=== PATIENT | male | born 2000 | race Caucasian/White ===

== ENCOUNTER 2019-12-30 21:57 | Inpatient (IN) | payer BC, SELFPAY ==
[2019-12-30 22:06] VITALS: BP 145/93; PULSE 84; RESP 18; TEMP 37.2; O2SAT 98; BMI 35.2
--- NOTE | 2019-12-30 22:15 | XR_ITS ---
PROCEDURE: XR CHEST 2V CLINICAL HISTORY: chest pain COMPARISON: No exams were available for comparison FINDINGS: The cardiomediastinal silhouette and pulmonary vascularity are within normal limits. The lungs are clear without infiltrates, suspicious nodules, or pleural effusions. No acute bony abnormalities. IMPRESSION: No acute findings. Dictated by: Zachery Zepeda MD 12/31/2019 05:45 Electronically signed by Zachery Zepeda MD in [place] 12/31/2019 05:45
--- NOTE | 2019-12-30 22:20 | ECG_ITS ---
APPROVED REPORT Exam: Resting ECG HR:135 bpm ECG Measurements Heart Rate 135 AXES QRSd 88 QRS 48 QT 274 T 35 QTc 411 <Conclusion> Atrial fibrillation with rapid ventricular response with premature ventricular or aberrantly conducted complexes Abnormal ECG Electronically signed by : Julián Tubbs, 01/01/2020 14:00:08
[2019-12-30 22:31] LABS: Basophils # 0.1 K/mm3 (0-0.2); Basophils % 1.4 % (0.1-2.0); Eosinophils # 0.1 K/mm3 (0.0-0.4); Eosinophils % 1.7 % (0.1-12.0); Hematocrit 44.8 % (42.0-52.0); Lymphocytes # 2.5 K/mm3 (0.7-4.5); Mean Corpuscular HGB Conc 35.7 g/dL (31.8-35.4); Mean Corpuscular Hemoglobin 33.3 pg (27.0-31.2); Mean Corpuscular Volume 93.2 fl (80-94); Mean Platelet Volume 8.2 fl (7.4-10.4); Monocytes # 0.4 K/mm3 (0.1-1.0); Monocytes % 5.5 % (1.7-9.3); Neutrophils # 4.3 K/mm3 (1.8-7.8); Neutrophils % 57.4 % (37.0-80.0); Platelet Count 257 K/mm3 (142-424); Red Cell Distribution Width 13.1 % (11.5-17.5); White Blood Count 7.5 K/mm3 (4.8-10.8)
[2019-12-30 22:36] LABS: Chloride 106 mmol/L (98-107)
[2019-12-30 22:37] LABS: Potassium 3.7 mmoL/L (3.5-5.1); Sodium 140 mmol/L (136-145)
[2019-12-30 22:39] LABS: Blood Urea Nitrogen 15 mg/dl (9-20); Creatinine Clearance Estimated 244 mL/min (50-200); Estimated Glomerular Filt Rate 122 ml/min (>60); GFR (African American) 148 ML/MIN (>60)
[2019-12-30 22:40] LABS: Anion Gap 11.7 mEq/L (5-15); Calcium 9.5 mg/dl (8.4-10.2); Carbon Dioxide 26 mmol/L (22.0-30.0); Glucose 113 mg/dl (74-100)
[2019-12-30 22:42] LABS: Microscopic, Urine URINE MICROSCOPIC (MICROSCOPIC)
[2019-12-30 22:56] LABS: Appearance,Urine CLEAR (Clear); Bilirubin,Urine Negative (Negative); Blood, Urine Negative (Negative); Color,Urine YELLOW (Yellow); Glucose,Urine (UA) Negative (Negative); Ketones,Urine Negative (Negative); Leukocyte Esterase,Urine Negative (Negative); Nitrate,Urine Negative (Negative); PH,Urine 6.5 (5.0-8.5); Protein,Urine Negative (Negative); Specific Gravity, Urine 1.025 (1.005-1.030)
--- NOTE | 2019-12-30 23:05 | HMH.EDCP ---
ED Disposition Clinical Impression: Obesity (BMI 30-39.9) A-fib Qualifiers: Atrial fibrillation type: unspecified Qualified Code(s): I48.91 - Unspecified atrial fibrillation Disposition: Admitted As Inpatient Condition on Discharge: Serious Referrals: Provider,Referral, [Referring] - - Critical Care Critical Care Time: No Attestation: On 12/30/19, the high probability of a clinically significant, sudden or life threatening deterioration of the following system(s) required my full and direct attention, intervention and personal management. The time I documented below is in addition to time spent performing reported procedures but includes the following listed in this critical care notation. Medical Decision Making - Medical Records Medical records reviewed: Yes: I reviewed the patient's medical records. - Raul Inquiry Pt receiving controlled substance: No Vital Signs: 12/30/19 22:06 12/30/19 23:28 12/31/19 00:06 Temperature 98.9 F Temperature Source Oral Pulse Rate [Right] 84 98 H 91 H Respiratory Rate 18 18 14 Blood Pressure [Right Arm] 145/93 H 117/54 L 118/62 Blood Pressure Mean [Right Arm] 110 75 80 Blood Pressure Source [Right Arm] Automatic Cuff Automatic Cuff Blood Pressure Position [Right Arm] Sitting Supine 02 Sat by Pulse Oximetry 98 97 97 Oxygen Delivery Method Room Air Room Air Room Air - Lab Data Lab results reviewed: Yes: I reviewed the patient's lab results. Lab Results 12/30/19 22:25: WBC 7.5, RBC 4.80, Hgb 16.0, Hct 44.8, MCV 93.2, MCH 33.3 H, MCHC 35.7 H, RDW 13.1, Plt Count 257, MPV 8.2, Neut % (Auto) 57.4, Lymph % (Auto) 34.0, [place] % (Auto) 5.5, Eos % (Auto) 1.7, Baso % (Auto) 1.4, Neut # (Auto) 4.3, Lymph # (Auto) 2.5, [place] # (Auto) 0.4, Eos # (Auto) 0.1, Baso # (Auto) 0.1 12/30/19 22:25: Sodium 140, Potassium 3.7, Chloride 106, Carbon Dioxide 26, Anion Gap 11.7, BUN 15, Creatinine 0.80, Estimated Creat Clear 244, Estimated GFR 122, Est GFR ( Amer) 148, Glucose 113 H, Calcium 9.5, Troponin I < 0.01, TSH 2.17, Thyroxine (T4) 11.0 12/30/19 22:25: Urine Color Yellow, Urine Appearance Clear, Urine pH 6.5, Ur Specific [place] 1.025, Urine Protein Negative, Urine Glucose (UA) Negative, Urine Ketones Negative, Urine Blood Negative, Urine Nitrate Negative, Urine Bilirubin Negative, Urine Urobilinogen 1.0, Ur Leukocyte Esterase Negative, Urine WBC Occasional, Ur Squamous Epith Cells Occasional, Urine Bacteria Trace 12/30/19 22:25: Urine Opiates Screen Negative, Urine Methadone Screen Negative, Ur Barbituates Screen Negative, Ur Phencyclidine Scrn Negative, Ur Amphetamines Screen Negative, U Benzodiazepines Scrn Negative, Urine Cocaine Screen Negative, U Marijuana (THC) Screen Negative Result diagrams: 12/30/19 22:25 12/30/19 22:25 Orders (Tests/Meds): ED MEDICATIONS Generic Name Dose Route Start Last Admin Trade Name Freq PRN Reason Stop Dose Admin Sodium Chloride 1,000 mls @ 999 mls/hr 12/30/19 22:15 12/30/19 22:24 Sod Chlor 0.9% 1000ml Bag IV 12/30/19 23:15 999 mls/hr .Q1H1M DILIP Administration Diltiazem HCl 100 mg/ Sodium 100 mls @ 5 mls/hr 12/30/19 22:30 12/30/19 22:49 Chloride IV 01/29/20 22:29 5 mls/hr .Q20H DILIP Administration Protocol Diltiazem HCl 100 mg/ Sodium 100 mls @ 5 mls/hr 12/30/19 22:46 12/30/19 22:57 Chloride IV 01/29/20 22:45 5 mls/hr .Q20H DILIP Administration Protocol Discontinued Medications Generic Name Dose Route Start Last Admin Trade Name Freq PRN Reason Stop Dose Admin Aspirin 324 mg 12/30/19 22:15 12/30/19 22:24 Aspirin 81mg Chewable Tablet PO 12/30/19 22:16 324 mg ONCE ONE Administration Diltiazem HCl 10 mg 12/30/19 22:30 12/30/19 22:49 Cardizem 25mg/5ml Vial IV 12/30/19 22:31 10 mg ONCE ONE Administration ORDERS Category Date Time Status XR chest 2V Stat Exams 12/30/19 22:15 Taken Troponin I Q3H Lab 12/31/19 01:15 Ordered Troponin I Q3H Lab 12/31/19 04
[2019-12-30 23:09] LABS: Amphetamine/Metha Screen,Urine Negative ng/ml (<1000); Benzodiazepines Screen,Urine Negative ng/ml (<200); Troponin I < 0.01 ng/ml (0.00-0.034)
[2019-12-30 23:10] LABS: Barbiturates Screen,Urine Negative ng/ml (<200)
[2019-12-30 23:11] LABS: Cannabinoid Screen,Urine Negative ng/ml (<50); Cocaine Screen,Urine Negative ng/ml (<300); Thyroid Stimulating Hormone 2.17 uIU/mL (0.465-4.68)
[2019-12-30 23:12] LABS: Methadone Screen,Urine Negative ng/ml (<300)
[2019-12-30 23:13] LABS: Opiate Screen,Urine Negative ng/ml (<300); Phencyclidine Screen,Urine Negative ng/ml (<25)
[2019-12-30 23:25] LABS: Bacteria,Urine Trace /lpf; Squamous Epithelial Cell,Urine Occasional #/hpf (0-5); WBC,Urine Occasional #/hpf (0-3)
[2019-12-30 23:28] VITALS: BP 117/54; PULSE 98; RESP 18; O2SAT 97
--- NOTE | 2019-12-30 23:29 | PC.NURSE ---
Pt has a normal rate, but continues to be in A-fib, pt BP dropped from SBP 145 to SBP 117, did not increase Cardizem gtt
[2019-12-31] VITALS (35 sets, daily range): BP systolic 101–144; BP diastolic 50–90; PULSE 60–112; RESP 14–20; TEMP 36.8–37.2; O2SAT 94–100; BMI 36.7
--- NOTE | 2019-12-31 | CA_ITS ---
APPROVED REPORT EXAM: Comprehensive 2D, Doppler, and color-flow Echocardiogram Exercise Rider: Fanny Cheek RDCS Ht: 6 ft 0 in Wt: 260lbs BSA: 2.38 Indications: bicuspid av AF Procedure After obtaining informed consent, patient underwent transesophageal echo in the [facility]. Sedation was administered by Koby Walker C.R.N.A. Transesophageal probe was inserted and advanced into esophagus without difficulty by Dr. Ruben Cartagena. The JESSE was performed without complications. Synchronized Cardioversion attempted: Successful Synchronized Cardioversion acheived with 150 Joules after 1 attempt(s). Rhythm following Synchronized Cardioversion: Normal Sinus Rhythm Throughout the procedure, the blood pressure, pulse oximetry, cardiac rhythm, and rate were monitored. The patient tolerated the procedure without adverse effects. Recovery from conscious sedation was uneventful and vital signs were stable. Left Ventricle Left ventricle is normal size preserved left ventricular systolic function, visually estimated ejection fraction 55% with no regional wall motion abnormality. Right Ventricle Right ventricle is mildly enlarged with normal contractility. Atria Left atrium is mildly enlarged. Left atrial appendage is free of thrombus, there is good appendage flow by spectral Doppler. Right atrium is mildly enlarged. Interatrial septum is intact, there is no flow across the interatrial septum, agitated saline contrast study fails to identify intracardiac shunt. Aortic Valve Aortic valve is bicuspid, there is no aortic stenosis, there is moderate to severe aortic insufficiency Mitral Valve Mitral valve is normal, there is no mitral stenosis, there is trace mitral regurgitation. Tricuspid Valve Tricuspid valve is grossly normal, there is mild tricuspid regurgitation. Pulmonic Valve Pulmonic valve is grossly normal Great Vessels Aortic root is enlarged measuring 4.2 cm Ascending aorta is mildly dilated. Pericardium No significant pericardial effusion noted. Conclusion 1. Mild biatrial enlargement, no thrombus seen in left atrium or left atrial appendage, there is good appendage flow by spectral Doppler. 2. Normal left ventricular size preserved left ventricular systolic function 3. Bicuspid aortic valve without aortic stenosis, there is moderate to severe aortic insufficiency, aortic root is enlarged measuring 4.2 cm. 4. Mildly enlarged right atrium and right ventricle, contractility of the right ventricle is normal. 5. No significant pericardial effusion noted. Electronically signed by : Holden Goldstein, 12/31/2019 15:17:20
--- NOTE | 2019-12-31 01:25 | PC.NURSE ---
Pt continues to be in A-fib with a controlled rate
[2019-12-31 01:43] LABS: Troponin I < 0.01 ng/ml (0.00-0.034)
--- NOTE | 2019-12-31 04:23 | PC.NURSE ---
A&OX4. PT HAS TOLERATED ROOM AIR WELL THROUGHOUT SHIFT. LUNG SOUNDS BILATERALLY CLEAR. RESPIRATIONS CLEAR AND UNLABORED. NO COUGH NOTED. HEART RATE REGULAR. ATRIAL FIBRILLATION WITH PVCS NOTED ON TELEMETRY WITH A CONTROLLED RATE. ACTIVE BOWEL SOUNDS HEARD IN ALL 4 QUADRANTS. SOFT AND NONTENDER. PUPILS BRISK AND REACTIVE TO LIGHT. +2 PULSES NOTED THROUGHOUT. HAND COOK HELPER VEGETABLE EQUAL. CARDIZEM DRIP INFUSING AT 5MG/HR. NS INFUSING AT 50ML/HR. PT TOLERATING WELL. PT RECEIVED BED BATH AND WAS CLIPPED BY UPHOLSTERY MECHANIC IN PREPARATION FOR CARDIAC CONSULTATION. BED IN LOWEST POSITION. CALL LIGHT WITHIN REACH. VSS. NO CONCERNS AT THIS TIME. WILL CONTINUE TO MONITOR.
[2019-12-31 05:18] LABS: Basophils % 0.6 % (0.1-2.0); Eosinophils # 0.1 K/mm3 (0.0-0.4); Eosinophils % 1.8 % (0.1-12.0); Hematocrit 43.5 % (42.0-52.0); Hemoglobin 15.4 g/dL (14.1-18.0); Lymphocytes # 2.6 K/mm3 (0.7-4.5); Lymphocytes % 40.4 % (10-50); Mean Corpuscular HGB Conc 35.4 g/dL (31.8-35.4); Mean Corpuscular Hemoglobin 33.2 pg (27.0-31.2); Mean Corpuscular Volume 93.9 fl (80-94); Mean Platelet Volume 8.1 fl (7.4-10.4); Monocytes # 0.5 K/mm3 (0.1-1.0); Monocytes % 7.8 % (1.7-9.3); Neutrophils # 3.1 K/mm3 (1.8-7.8); Neutrophils % 49.5 % (37.0-80.0); Platelet Count 223 K/mm3 (142-424); Red Blood Count 4.63 M/mm3 (4.60-6.20); Red Cell Distribution Width 13.3 % (11.5-17.5); White Blood Count 6.3 K/mm3 (4.8-10.8)
[2019-12-31 05:49] LABS: Troponin I < 0.01 ng/ml (0.00-0.034)
[2019-12-31 05:58] LABS: Blood Urea Nitrogen 19 mg/dl (9-20); Calcium 9.6 mg/dl (8.4-10.2); Carbon Dioxide 23 mmol/L (22.0-30.0); Chloride 108 mmol/L (98-107); Cholesterol 151 mg/dl (140-200); Creatinine Clearance Estimated 254 mL/min (50-200); Estimated Glomerular Filt Rate 122 ml/min (>60); GFR (African American) 148 ML/MIN (>60); Glucose 96 mg/dl (74-100); HDL Cholesterol 50 mg/dl (40-60); Magnesium 1.9 mg/dl (1.6-2.3); Sodium 137 mmol/L (136-145); Triglycerides 121 mg/dl (30-150); VLDL Cholesterol 24 mg/dL (0-40)
--- NOTE | 2019-12-31 08:00 | CA_ITS ---
APPROVED REPORT EXAM: Comprehensive 2D, Doppler, and color-flow Echocardiogram Tail Puller: Becky Akbar RT(R) Ht: 6 ft 0 in Wt: 260lbs BSA: 2.38 BP: 117/54 mmHg Indications: AF CP SOA 2D Dimensions LVOT 2.81 cm (M/F) 1.5-2.5 M-Mode Dimensions RVDd 1.97 cm (0.9-2.6) LVDd 4.77 cm (3.5-5.7) LVDs 3.41 cm (3.5-5.7) IVSd 1.64 cm (0.6-1.1) PWd 0.96 cm (0.6-1.1) EF (Teich) 54.90% FS 28.50% EDV (Teich) 106.00 mL ESV (Teich) 47.80 mL LV Diastology E/A Ratio 2.56 Aortic Valve LVOT Max 106.00 (70-110 cm/s) LVOT VTI 23.36 cm Mitral Valve MV A Velocity 32.00 (40-130 cm/s) Left Ventricle Left atrium is mildly enlarged, left ventricle is normal size, preserved left ventricular systolic function, visually estimated ejection fraction 55% with no regional wall motion abnormality. Diastolic parameters are inconclusive. Right Ventricle Right atrium and right ventricle are mildly enlarged with normal contractility. Aortic Valve Aortic valve is bicuspid. There is no aortic stenosis, there is moderate aortic insufficiency. Mitral Valve Mitral valve grossly normal, there is trace mitral regurgitation. Tricuspid Valve Tricuspid valve is grossly normal, there is mild tricuspid regurgitation, tricuspid regurgitation jet velocity is inadequate for calculation of the right ventricular systolic pressure. Pulmonic Valve Pulmonic valve is poorly visualized. Great Vessels Aortic root is enlarged measuring 4.2 cm Pericardium No significant pericardial effusion noted Conclusion 1. Mild biatrial abdomen, normal left ventricular size, visually estimated ejection fraction 55% with no regional wall motion abnormality. Diastolic parameters are inconclusive. 2. Bicuspid aortic valve without aortic stenosis, there is moderate aortic insufficiency, aortic root is enlarged measuring 4.2 cm. 3. Trace mitral and mild tricuspid regurgitation. 4. No significant pericardial effusion noted. Electronically signed by : Holden Goldstein, 12/31/2019 15:21:02
--- NOTE | 2019-12-31 08:06 | HMH.PHAVTE ---
[facility] VTE Monitoring - Patient Demographics Admission date: 12/31/19 Report Date: 12/31/19 Time: 08:06 Allergies/Adverse Reactions: Patient Allergies No Known Allergies Allergy (Verified 12/31/19 00:58) Height: 1.83 m Weight: 123.122 kg Patient Problems: Current Active Problems A-fib (Acute) Obesity (BMI 30-39.9) (Acute) - VTE Risk Labs: VTE Related Lab Results Hgb 15.4 g/dL (14.1-18.0) 12/31/19 04:40 Hct 43.5 % (42.0-52.0) 12/31/19 04:40 Plt Count 223 K/mm3 (142-424) 12/31/19 04:40 BUN 19 mg/dl (9-20) D 12/31/19 04:40 Creatinine 0.80 mg/dl (0.66-1.25) 12/31/19 04:40 Estimated Creat Clear 254 mL/min (50-200) 12/31/19 04:40 Was VTE Risk Assessment Performed: Yes VTE Score: 1 VTE Risk Level: Very Low Risk Clinical Trial Participant: No - Prophylaxis VTE Prophylaxis Ordered?: Yes Types of VTE Prophylaxis: TEDS Knee High
--- NOTE | 2019-12-31 08:49 | HMH.CNCARD ---
History of Present Illness Consult date: 12/31/19 Requesting physician: Farheen Pollock Consult reason: atrial fibrillation Chief complaint: Palpitations, SOA, chest discomfort Additional Medical History:: 1. History of eczema 2. Alcohol use 3. History of VAPE use 4. A. flutter with RVR, 12/2019 5. Bicuspid Aortic valve, echo, 12/2019 History of present illness: 19-year-old male presented to the emergency department for complaints of palpitations, shortness of breath and chest discomfort starting on 12/29/2019. Occasional dizziness after bending over and standing up. He denies any passing out spells. Chest discomfort was located centrally without radiation. Shortness of breath was associated with palpitations and exertion. Patient has had a history of intermittent episodes of palpitations (lasting only a few seconds to minutes at a time) in the past but no history of diagnosed arrhythmias. Interestingly his older brother has a history of SVT with ablation procedure. Home monitor recorded heart rates in the 160 bpm range with EKG here showing atrial flutter with rate of 135 bpm with burst of to 160 to 170 bpm. Troponins overnight have returned normal x3. Patient is on a diltiazem drip with rate controlled currently. 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 He denies any illicit drug use. [facility] History Medical History: Denies:: Cancer, Diabetes Mellitus Type 1, Diabetes Mellitus Type 2, MRSA *Have you ever received a pneumonia vaccine?: No *Have you received a flu vaccine this season?: No Laterality Cases: Right: Arthroscopy Shoulder Amputation: No Fractures: Yes (R ARM TWICE, COLLAR BONE) - *Social History Educational Level: Completed High School Smoking Status: Unknown if ever smoked Tobacco Type: smokeless tobacco # Packs/Day (cigarettes): 0 Alcohol Intake: current Alcohol Intake Frequency:: a few times a month *Occupational Status:: employed Housing: house Household Members: family *Travel in the last 8 weeks: None Family Hx:: Diabetes Meds Home Medications Medication Instructions Recorded Confirmed Type No Known Home Medications 12/30/19 12/30/19 History Allergies Allergy/AdvReac Type Severity Reaction Status Date / Time No Known Allergies Allergy Verified 12/31/19 00:58 Review of Systems - Review of Systems Review of systems:: pertinent systems reviewed and negative unless documented below - *Cardiovascular Reports chest pain - *Respiratory Reports shortness of breath with activity, Denies cough - *Gastrointestinal Denies loose stools, Denies nausea, Denies vomiting - *Genitourinary Denies blood in urine - *Musculoskeletal Denies joint pain, Denies back pain - *Neurologic Reports dizziness, Denies seizure-like activity, Denies fainting, Denies tingling Exam Vital signs and Labs for Last 24 Hours: Temp Pulse Resp BP Pulse Ox 98.9 F 107 H 18 101/56 L 97 12/31/19 08:00 12/31/19 08:00 12/31/19 08:00 12/31/19 08:00 12/31/19 08:00 Laboratory Results - last 24 hr 12/30/19 22:25: WBC 7.5, RBC 4.80, Hgb 16.0, Hct 44.8, MCV 93.2, MCH 33.3 H, MCHC 35.7 H, RDW 13.1, Plt Count 257, MPV 8.2, Neut % (Auto) 57.4, Lymph % (Auto) 34.0, [place] % (Auto) 5.5, Eos % (Auto) 1.7, Baso % (Auto) 1.4, Neut # (Auto) 4.3, Lymph # (Auto) 2.5, [place] # (Auto) 0.4, Eos # (Auto) 0.1, Baso # (Auto) 0.1 12/30/19 22:25: Sodium 140, Potassium 3.7, Chloride 106, Carbon Dioxide 26, Anion Gap 11.7, BUN 15, Creatinine 0.80, Estimated Creat Clear 244, Estimated GFR 122, Est GFR ( Amer) 148, Glucose 113 H, Calcium 9.5, Troponin I < 0.01, TSH 2.17, Thyroxine (T4) 11.0 12/30/19 22:25: Urine Color Yellow, Urine Appearance Clear, Urine pH 6.5, Ur Specific [place] 1.025, Urine Protein Negative, Urine Glucose (UA) Negative, Urine Ketones Negative, Urine Blood Negative, Urine Nitrate Negative, Urine Bilirub
--- NOTE | 2019-12-31 09:05 | HMH.HP ---
*Admission Date: 12/31/19 *Chief complaint: palpitations *History of present illness: 19-year-old male presented to the emergency department for complaints of palpitations, shortness of breath and chest discomfort starting on 12/29/2019. Occasional dizziness after bending over and standing up. He denies any passing out spells. Chest discomfort was located centrally without radiation. Shortness of breath was associated with palpitations and exertion. Patient has had a history of intermittent episodes of palpitations (lasting only a few seconds to minutes at a time) in the past but no history of diagnosed arrhythmias. Interestingly his older brother has a history of SVT with ablation procedure. Home monitor recorded heart rates in the 160 bpm range with EKG here showing atrial fibrillation with rate of 135 bpm with burst of to 160 to 170 bpm. Troponins overnight have returned normal x3. Patient is on a diltiazem drip with rate controlled currently. 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 He denies any illicit drug use. (the above as per Stephan León) [facility] History I have reviewed the patient's past medical history: Yes Medical History: Denies:: Cancer, Diabetes Mellitus Type 1, Diabetes Mellitus Type 2, MRSA *Have you ever received a pneumonia vaccine?: No *Have you received a flu vaccine this season?: No Laterality Cases: Right: Arthroscopy Shoulder Amputation: No Fractures: Yes (R ARM TWICE, COLLAR BONE) - *Social History Educational Level: Completed High School Smoking Status: Unknown if ever smoked Tobacco Type: smokeless tobacco # Packs/Day (cigarettes): 0 Alcohol Intake: current Alcohol Intake Frequency:: a few times a month *Occupational Status:: employed Housing: house Household Members: family *Travel in the last 8 weeks: None Family Hx:: Diabetes, Heart Attack, Hyperlipidemia, Hypertension Review of Systems - Constitutional Denies chills, Denies fever(s), Denies weakness - Eyes Denies blurry vision, Denies double vision - ENT Denies nasal congestion, Denies sore throat - *Cardiovascular Reports chest pain, Reports rapid, pounding, or irregular heartbeat, Denies shortness of breath - *Respiratory Denies cough, Denies shortness of breath - *Gastrointestinal Denies abdominal pain, Denies loose stools, Denies nausea, Denies vomiting - *Genitourinary Denies difficulty urinating, Denies painful urination - *Musculoskeletal Denies joint pain - *Neurologic Reports dizziness, Denies seizure-like activity, Denies fainting, Denies tingling, Denies weakness Meds Home Medications Medication Instructions Recorded Confirmed Type No Known Home Medications 12/30/19 12/30/19 History Allergies Allergy/AdvReac Type Severity Reaction Status Date / Time No Known Allergies Allergy Verified 12/31/19 00:58 Exam Vital signs and Labs for Last 24 Hours: Temp Pulse Resp BP Pulse Ox 98.9 F 107 H 18 101/56 L 97 12/31/19 08:00 12/31/19 08:00 12/31/19 08:00 12/31/19 08:00 12/31/19 08:00 Laboratory Results - last 24 hr 12/30/19 22:25: WBC 7.5, RBC 4.80, Hgb 16.0, Hct 44.8, MCV 93.2, MCH 33.3 H, MCHC 35.7 H, RDW 13.1, Plt Count 257, MPV 8.2, Neut % (Auto) 57.4, Lymph % (Auto) 34.0, [place] % (Auto) 5.5, Eos % (Auto) 1.7, Baso % (Auto) 1.4, Neut # (Auto) 4.3, Lymph # (Auto) 2.5, [place] # (Auto) 0.4, Eos # (Auto) 0.1, Baso # (Auto) 0.1 12/30/19 22:25: Sodium 140, Potassium 3.7, Chloride 106, Carbon Dioxide 26, Anion Gap 11.7, BUN 15, Creatinine 0.80, Estimated Creat Clear 244, Estimated GFR 122, Est GFR ( Amer) 148, Glucose 113 H, Calcium 9.5, Troponin I < 0.01, TSH 2.17, Thyroxine (T4) 11.0 12/30/19 22:25: Urine Color Yellow, Urine Appearance Clear, Urine pH 6.5, Ur Specific [place] 1.025, Urine Protein Negative, Urine Glucose (UA) Negative, Urine Ketones Negative, Urine Blood Negative, Urine Nitrate Ne
--- NOTE | 2019-12-31 14:38 | ECG_ITS ---
APPROVED REPORT Exam: Resting ECG HR:65 bpm ECG Measurements Heart Rate [address] 192 P 10 QRSd 84 QRS 10 QT 396 T 11 QTc 411 <Conclusion> Normal sinus rhythm Normal ECG Electronically signed by : Sulaiman Nichols, 01/03/2020 07:16:00
--- NOTE | 2019-12-31 14:39 | P.PN_ITS ---
[facility] Anesthesia Checklist - Patient Identification Patient Identification: Arm Band, Verbal (Name & ) - Structural Data Admitted From: Inpatient Planned Operative Procedure/s: JESSE/cardioversion Consent for Planned Operative Procedure(s) Verified: Yes Verified Documents: Surgical Consent, History and Physical - NPO Status Verified Time NPO: 00:00 - Chart Verification Results Verified: CBC, BMP, ECG, UA, Chest Xray - Additional verifications Anesthesia Reactions: No - Airway Assessment C-Spine Mobility Assessed: Yes TMJ Mobility Assessed: Yes Dentition: Good Dentition - Neurological Assessment Level of Consciousness: Awake, Appropriate, Follows Commands, Drowsy (pt states he is extremely tired) Hx Seizures: No Numbness or tingling in extremities: No - Anesthesia Plan Anesthesia Risk discussed: Yes Anesthesia Plan: Verified ASA Class: III Anesthesia Type: MAC [facility] History I have reviewed the patient's past medical history: Yes Medical History: Reports:: Atrial Fibrillation Denies:: Cancer, Diabetes Mellitus Type 1, Diabetes Mellitus Type 2, MRSA *Have you ever received a pneumonia vaccine?: No *Have you received a flu vaccine this season?: No Comment:: obesity, SOB, palpitations, chest pain Anesthesia experience/problems:: none Laterality Cases: Right: Arthroscopy Shoulder Amputation: No Fractures: Yes (R ARM TWICE, COLLAR BONE) - *Social History Educational Level: Completed High School Smoking Status: Unknown if ever smoked Tobacco Type: smokeless tobacco # Packs/Day (cigarettes): 0 Alcohol Intake: current Alcohol Intake Frequency:: a few times a month Substance Use Type: denies use *Occupational Status:: employed Housing: house Household Members: family *Travel in the last 8 weeks: None Family Hx:: Diabetes, Heart Attack, Hyperlipidemia, Hypertension
[2020-01-01] VITALS: BP 114/71; PULSE 70; PULSE 71; O2SAT 98
--- NOTE | 2020-01-01 00:25 | PC.NURSE ---
He is A&Ox4. Denies pain, shortness of air, dizziness, weakness, and palpitations. Reports that he feels fine. He has been awake watching television and on his phone. Continues in NSR.
--- NOTE | 2020-01-01 00:59 | PC.NURSE ---
Report given to Lisette Regalado RN.
[2020-01-01 02:00] VITALS: BP 103/60; PULSE 68; RESP 20; O2SAT 98
[2020-01-01 04:00] VITALS: BP 108/63; PULSE 61; PULSE 64; RESP 16; TEMP 36.9; O2SAT 96; BMI 36.6
--- NOTE | 2020-01-01 06:06 | PC.NURSE ---
patient has rested throughout shift, no complaints voiced.
--- NOTE | 2020-01-01 07:59 | HMH.PNCARD ---
Subjective Date: 01/01/20 Time: 07:59 Principal diagnosis: Atrial fib/flutter with RVR Interval history: 19-year-old white male in bed in no acute distress. Patient remains in sinus rhythm overnight by telemetry. He denies any chest pain, pressure or tightness. Exam Vital signs and Labs for Last 24 Hours: Temp Pulse Resp BP Pulse Ox 98.4 F 61 16 108/63 L 96 01/01/20 04:00 01/01/20 04:00 01/01/20 04:00 01/01/20 04:00 01/01/20 04:00 I & O for Last 24 hours: Intake & Output 12/29/19 12/30/19 12/31/19 01/01/20 11:59 11:59 11:59 11:59 Intake Total 1087 / 1087 524 / 524 Balance 1087 / 1087 524 / 524 Weight 271 lb 7.001 oz 270 lb 8 oz - *Routine HEENT Exam Head: Present: normocephalic Eye: Present: EOMI, PERRL ENT: Present: mucous membranes moist - *Routine Respiratory Exam Present: CTA bilaterally. Absent: accessory muscle use, rales, rhonchi, wheezes - *Routine Cardiovascular Exam Present: RRR. Absent: murmur, gallop, rubs - *Routine Neurological Exam Present: alert, oriented X3, moving all extremities Progress Note: A&P (1) Atrial flutter with rapid ventricular response Status: Acute Current Visit: Yes (2) ETOH abuse Status: Acute Current Visit: Yes (3) Obesity (BMI 30-39.9) Status: Acute Current Visit: Yes (4) Bicuspid aortic valve determined by imaging Status: Acute Current Visit: Yes (5) Smokeless tobacco use Status: Acute Current Visit: Yes Assessment and Plan for All Diagnoses:: Clinically stable overnight on metoprolol succinate Exar 25 mg daily and Eliquis 5 mg twice daily. Patient can be discharged home from cardiology standpoint with follow-up in 1 week. Patient does have bicuspid aortic valve and aortic root enlargement which will need to be followed every 6 months with echocardiogram. If blood pressure allows in the future, would recommend adding Cozaar 25 mg daily but will discuss this at follow-up in 1 week.
[2020-01-01 08:00] VITALS: PULSE 60
[2020-01-01 08:09] VITALS: BP 118/65; PULSE 60; RESP 15; O2SAT 97
--- NOTE | 2020-01-01 08:24 | HMH.ACPN2 ---
Internal Medicine - PN: Subj *Date: 01/01/20 *Time: 08:24 Interval history: Patient has remained in sinus rhythm overnight and feels well this morning. He denies any chest pain or heart palpitations. He slept well and is eating well and is anxious to go home. Exam Vital signs and Labs for Last 24 Hours: Temp Pulse Resp BP Pulse Ox 98.4 F 60 15 118/65 97 01/01/20 04:00 01/01/20 08:09 01/01/20 08:09 01/01/20 08:09 01/01/20 08:09 I & O for Last 24 hours: Intake & Output 12/29/19 12/30/19 12/31/19 01/01/20 11:59 11:59 11:59 11:59 Intake Total 1087 / 1087 524 / 524 Balance 1087 / 1087 524 / 524 Weight 271 lb 7.001 oz 270 lb 8 oz - Constitutional no acute distress - *Routine Respiratory Exam Present: CTA bilaterally - *Routine Cardiovascular Exam Present: RRR - *Routine Abdominal Exam Present: soft, normoactive bowel sounds. Absent: tenderness - *Routine Extremities Exam Absent: cyanosis, clubbing, edema - *Routine Skin Exam Present: warm. Absent: rash - *Routine Neurological Exam Present: alert, oriented X3 Assessment and Plan (1) Atrial flutter with rapid ventricular response Current visit: Yes Status: Acute Category: Medical Code(s): I48.92 - Unspecified atrial flutter (2) ETOH abuse Current visit: Yes Status: Acute Category: Social Hx Code(s): F10.10 - Alcohol abuse, uncomplicated (3) Obesity (BMI 30-39.9) Current visit: Yes Status: Acute Category: Medical Code(s): E66.9 - Obesity, unspecified (4) Bicuspid aortic valve determined by imaging Current visit: Yes Status: Acute Category: Medical Code(s): Q23.1 - Congenital insufficiency of aortic valve (5) Smokeless tobacco use Current visit: Yes Status: Acute Category: Social Hx Code(s): Z72.0 - Tobacco use - Assessment and plan all Dx Assessment and Plan for all problems:: Cardiology feels he has been stable on metoprolol succinate 25 mg daily along with Eliquis 5 mg twice daily. They feel he can be discharged home and will need to follow-up with them in 1 week.
[2020-01-01 08:27] VITALS: TEMP 36.5
--- NOTE | 2020-01-04 22:44 | HMH.DCSUM ---
General - General Admission date:: 12/31/19 Discharge date: 01/01/20 HPI HPI: 19-year-old male presented to the emergency department for complaints of palpitations, shortness of breath and chest discomfort starting on 12/29/2019. Occasional dizziness after bending over and standing up. He denies any passing out spells. Chest discomfort was located centrally without radiation. Shortness of breath was associated with palpitations and exertion. Patient has had a history of intermittent episodes of palpitations (lasting only a few seconds to minutes at a time) in the past but no history of diagnosed arrhythmias. Interestingly his older brother has a history of SVT with ablation procedure. Home monitor recorded heart rates in the 160 bpm range with EKG here showing atrial fibrillation with rate of 135 bpm with burst of to 160 to 170 bpm. Troponins overnight have returned normal x3. Patient is on a diltiazem drip with rate controlled currently. 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 He denies any illicit drug use. (the above as per [facility]) Hospital Course Hospital Course: Patient was seen in consultation by cardiology. His chest x-ray showed nothing acute and his preliminary echo showed an EF of 50% with a bicuspid aortic valve. Cardiology added Lovenox therapy and wanted to proceed with a JESSE cardioversion for further evaluation of his bicuspid aortic valve and hopefully conversion of atrial fib to sinus rhythm. They discontinued his diltiazem drip and started him on Lopressor. The patient had a JESSE and cardioversion. The JESSE revealed no thrombus and normal left ventricular size and a preserved left ventricular systolic function. There was a bicuspid aortic valve without aortic stenosis but moderate to severe aortic insufficiency. The patient was successfully cardioverted into normal sinus rhythm. He remained in sinus rhythm overnight and his chest pressure and chest tightness resolved. He was stable to be discharged home on metoprolol succinate 25 mg daily as well as Eliquis 5 mg twice daily. Cardiology wanted to follow with him in 1 week. Objective Vital signs: Temp Pulse Resp BP Pulse Ox 97.7 F 60 15 118/65 97 01/01/20 08:27 01/01/20 08:09 01/01/20 08:09 01/01/20 08:09 01/01/20 08:09 Narrative: - Constitutional no acute distress - *Routine HEENT Exam Head: Present: normocephalic Eye: Present: EOMI, PERRL ENT: Present: mucous membranes dry - *Routine Neck Exam Present: supple. Absent: carotid bruit, lymphadenopathy - *Routine Respiratory Exam Present: CTA bilaterally - *Routine Cardiovascular Exam Present: irregularly irregular - *Routine Abdominal Exam Present: soft, normoactive bowel sounds. Absent: tenderness - *Routine Extremities Exam Absent: cyanosis, clubbing, edema - *Routine Skin Exam Present: warm. Absent: rash - *Routine Neurological Exam Present: alert, oriented X3 DS: Diagnosis - Discharge Diagnosis (1) Atrial flutter with rapid ventricular response Status: Acute (2) ETOH abuse Status: Acute (3) Obesity (BMI 30-39.9) Status: Acute (4) Bicuspid aortic valve determined by imaging Status: Acute (5) Smokeless tobacco use Status: Acute Discharge Plan - Patient Discharge Instructions ACTIVITY: Continue current activity DIET: advance to your usual diet Patient Instructions: Atrial Fibrillation, DI for Atrial Fibrillation, DI for Obesity -- Adult - Follow up Plan Follow up with: Holden Goldstein MD [Staff Physician] - 01/08/20 12:00 pm Farheen Pollock MD [Primary Care Provider] - 01/13/20 10:15 am Disposition: Home, Self-Alf Medications: Home Medications Medication Instructions Recorded Confirmed Type No Known Home Medications 12/30/19 12/31/19 History Apixaban [Eliquis 5mg Tablet] 5 mg PO BID #60 tab 05
== END 2020-01-01 10:22 | disposition home or self-care (01) | DRG 309 ==
LOC: ER 22:03 → 2ND 12-31 00:31
PROVIDERS: Internal Medicine Cardiovascular Disease; Admitting Provider Family Medicine; Emergency Provider Emergency Medicine; PCP Family Medicine; Visit Provider Family Medicine
DX: I48.91 Unspecified atrial fibrillation (principal); Q23.1 Congenital insufficiency of aortic valve; Z72.0 Tobacco use; F10.10 Alcohol abuse, uncomplicated
CPT/HCPCS: 36415; 71046; 80048; 80061; 80305; 81001; 83735; 84436; 84443; 84484; 85025; 92960; 93005; 93306; 93312; 96365; 96366; 96367; 96375; 99284

== ENCOUNTER → 2020-01-28 18:33 | Outpatient (CLI) | payer BC, SELFPAY | PROVIDERS: PCP Nurse Practitioner Family; Visit Provider Physician Assistant | DX: G47.30 Sleep apnea, unspecified (principal); E66.9 Obesity, unspecified | CPT/HCPCS: G0399 ==

== ENCOUNTER 2020-09-18 13:21 | Emergency (ER) | payer BC, SELFPAY ==
[2020-09-18 13:36] VITALS: BP 143/92; PULSE 124; RESP 20; TEMP 39.6; O2SAT 98; BMI 37.3
--- NOTE | 2020-09-18 13:46 | HMH.EDUTC ---
[facility] [place] Disposition Clinical Impression: Viral syndrome, Bronchitis Disposition: Home, Self-Care Condition on Discharge: Good Instructions: DI for Viral Syndrome, DI for COVID-19 (Suspected or Confirmed ), Preventing the Spread of Coronavirus Discharge Instructions Additional Instructions: Drink plenty of fluids. Take tylenol for pain or fever. Return if you begin to have difficulty breathing. Follow up with your regular doctor. GO TO THE ER FOR ANY WORSENING SYMPTOMS Follow the [place] directions for covid-19 until you know for sure if you have it or not. Prescriptions: Ondansetron [Zofran 4mg ODT] 4 mg PO Q8HP PRN #12 tab.rapdis PRN Reason: Nausea Transmission Status: Received by [facility] Benzonatate [Tessalon Perle 100mg Cap] 100 mg PO TIDP PRN #30 cap PRN Reason: Cough [facility] Azithromycin [Z-Fabian 250mg Tab*] 250 mg PO UD DOSE PK #6 tab Transmission Status: [facility] Referrals: PCP,No [Primary Care Provider] - Forms: Work/School Release Time of Disposition: 14:40 Medical Decision Making - Medical Records Medical records reviewed: No: I reviewed the patient's medical records. - Raul Inquiry Pt receiving controlled substance: No Vital Signs: 09/18/20 13:36 09/18/20 14:21 09/18/20 14:52 Temperature 103.2 F H 102.7 F H 99.9 F H Temperature Source Oral Oral Oral Pulse Rate 105 H Pulse Rate [Right] 124 H Respiratory Rate 20 16 Blood Pressure 136/78 Blood Pressure [Right Arm] 143/92 H Blood Pressure Mean [Right Arm] 109 Blood Pressure Source [Right Arm] Automatic Cuff Blood Pressure Position [Right Arm] Sitting 02 Sat by Pulse Oximetry 98 - Lab Data Lab results reviewed: Yes: I reviewed the patient's lab results. Lab Results 09/18/20 13:47: Influenza Type A Ag Negative, Influenza Type B Ag Negative 09/18/20 13:47: Strep Scn Rapid Clinic Negative Orders (Tests/Meds): ED MEDICATIONS Discontinued Medications Generic Name Dose Route Start Last Admin Trade Name Freq PRN Reason Stop Dose Admin Acetaminophen 975 mg 09/18/20 13:42 09/18/20 13:43 Acetaminophen 325mg Tab PO 09/18/20 13:43 975 mg ONCE ONE Administration Ibuprofen 400 mg 09/18/20 13:42 09/18/20 13:43 Ibuprofen 400 Mg Tablet PO 09/18/20 13:43 400 mg ONCE ONE Administration Ondansetron HCl 4 mg 09/18/20 13:45 09/18/20 13:56 Ondansetron 4mg Odt SL 09/18/20 13:46 4 mg ONCE ONE Administration ORDERS Category Date Time Status Strep Screen Confirmation Stat Micro 09/18/20 13:47 Received [facility] [place] HPI - General Stated complaint: fever, cough diarrhea, aching Time Seen by Provider: 09/18/20 13:46 Mode of Arrival: Ambulatory Source of Information: Patient Limitations: No Limitations Description of Symptoms (Recalled from Triage Doc. by RN): fever, cought and n/v HEENT Symptoms (Recalled from RN notes): No Resp Symptoms (Recalled from RN notes): Yes (cough) Skin Symptoms (Recalled from RN notes): No MS Symptoms (Recalled from RN notes): No Functional Status (Recalled from RN notes): na - History of Present Illness Provider Complaint: He states that he has been sick for the past 2 days. He has been having a dry cough, body aches, scratchy sore throat. He states that he feels bad and he has had a very poor appetite since yesterday. He denies any abdominal pain. - Related Data Previous Rx's Medication Instructions Recorded Metoprolol Succinate [Toprol XL 25 mg PO DAILY #30 tab.er.24h 01/01/20 25mg tablet] aspirin 81 mg tablet,delayed 81 mg PO DAILY #30 tab 02/19/20 release Azithromycin [Z-Fabian 250mg Tab*] 250 mg PO UD DOSE PK #6 tab 09/18/20 Benzonatate [Tessalon Perle 100mg 100 mg PO TIDP PRN #30 cap 09/18/20 Cap] Ondansetron [Zofran 4mg ODT] 4 mg PO Q8HP PRN #12 tab.rapdis 09/18/20 Allergies Allergy/AdvReac Type Severity Reaction St
[2020-09-18 14:08] LABS: UTC Strep Screen (Rapid) Negative (Negative)
[2020-09-18 14:09] LABS: UTC Influenza A Antigen Negative (Negative); UTC Influenza B Antigen Negative (Negative)
[2020-09-18 14:21] VITALS: TEMP 39.3
[2020-09-18 14:52] VITALS: BP 136/78; PULSE 105; RESP 16; TEMP 37.7
== END 2020-09-18 14:53 | disposition home or self-care (01) ==
PROVIDERS: Emergency Provider Nurse Practitioner Family
DX: Z20.822 Contact with and (suspected) exposure to COVID-19 (principal); J20.9 Acute bronchitis, unspecified; B34.9 Viral infection, unspecified; I48.91 Unspecified atrial fibrillation; Z79.899 Other long term (current) drug therapy
CPT/HCPCS: 87804; 87880; 99202; G0463; U0003

== ENCOUNTER 2021-03-29 16:02 | Emergency (ER) | payer BC, SELFPAY ==
[2021-03-29 17:54] VITALS: BP 131/89; PULSE 68; RESP 19; TEMP 36.8; O2SAT 99; BMI 34.7
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
[2021-03-29 18:46] VITALS: BP 0/0; PULSE 0; RESP 0; TEMP -17.7; TEMP 0
== END 2021-03-29 18:46 | disposition home or self-care (01) ==
PROVIDERS: Emergency Provider Nurse Practitioner
DX: L03.116 Cellulitis of left lower limb (principal); I48.20 Chronic atrial fibrillation, unspecified
CPT/HCPCS: 90471; 99202; G0463

== ENCOUNTER 2023-04-27 20:16 | Emergency (ER) | payer BC, SELFPAY ==
[2023-04-27 20:18] VITALS: BP 141/89; PULSE 80; RESP 18; TEMP 37; O2SAT 98; BMI 29.1
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
[2023-04-27 20:33] VITALS: BP 141/89; PULSE 80; RESP 18; TEMP 37; O2SAT 98
[2023-04-27 20:38] LABS: Basophils # 0.1 K/mm3 (0-0.2); Basophils % 0.7 % (0.1-2.0); Eosinophils # 0.2 K/mm3 (0.0-0.4); Eosinophils % 3.2 % (0.1-12.0); Hematocrit 47.4 % (42.0-52.0); Lymphocytes # 2.1 K/mm3 (0.7-4.5); Lymphocytes % 31.2 % (10-50); Mean Corpuscular HGB Conc 33.7 g/dL (31.8-35.4); Mean Corpuscular Hemoglobin 31.7 pg (27.0-31.2); Mean Corpuscular Volume 94.3 fl (80-94); Mean Platelet Volume 8.3 fl (7.4-10.4); Monocytes # 0.3 K/mm3 (0.1-1.0); Monocytes % 4.6 % (1.7-9.3); Neutrophils # 4.2 K/mm3 (1.8-7.8); Neutrophils % 60.3 % (37.0-80.0); Platelet Count 261 K/mm3 (142-424); Red Blood Count 5.03 M/mm3 (4.60-6.20); Red Cell Distribution Width 12.7 % (11.5-17.5); White Blood Count 6.9 K/mm3 (4.8-10.8)
[2023-04-27 20:39] LABS: Chloride 107 mmol/L (98-107); Potassium 3.9 mmoL/L (3.5-5.1); Sodium 141 mmol/L (136-145)
[2023-04-27 20:42] LABS: Alanine Aminotransferase 29 U/L (12-78); Albumin Level 4.6 g/dl (3.5-5.0); Albumin/Globulin Ratio 1.3 (1.1-1.8); Alkaline Phosphatase 59 U/L (38-126); Anion Gap 14.9 mEq/L (5-15); Aspartate Amino Transferase 43 U/L (17-59); Bilirubin,Total 0.6 mg/dl (0.2-1.3); Blood Urea Nitrogen 10 mg/dl (9-20); Calcium 9.2 mg/dl (8.4-10.2); Carbon Dioxide 23 mmol/L (22.0-30.0); Estimated Glomerular Filt Rate 92 ml/min (>60); GFR (African American) 111 ML/MIN (>60); Globulin 3.5 g/dL (1.3-3.2); Glucose 96 mg/dl (74-100); Total Protein,Serum 8.1 g/dl (6.3-8.2)
[2023-04-27 22:01] VITALS: BP 121/73; PULSE 65; RESP 18; TEMP 36.7; O2SAT 99
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
== END 2023-04-27 22:08 | disposition home or self-care (01) ==
PROVIDERS: Emergency Provider Emergency Medicine
DX: S01.112A Laceration without foreign body of left eyelid and periocular area, initial encounter (principal); M54.50 Low back pain, unspecified; Z23 Encounter for immunization; V86.95XA Unspecified occupant of 3- or 4- wheeled all-terrain vehicle (ATV) injured in nontraffic accident, initial encounter
CPT/HCPCS: 12052; 70450; 70486; 71045; 72125; 72131; 72192; 80053; 85025; 90715; 96372; 99285